=== PATIENT | female | born 1970 | race Caucasian/White ===

== ENCOUNTER 2021-10-05 15:18 | Emergency (ER) | payer OTHER, SELFPAY ==
--- NOTE | 2021-10-05 15:22 | ED.BACK ---
HPI - Back Pain/Injury General Chief Complaint: Urogenital-Female Stated Complaint: Right Low Flank Pain Time Seen by Provider: 10/05/21 15:21 Source: patient Mode of arrival: ambulatory Limitations: no limitations History of Present Illness HPI Narrative: Ms. Matias is a 51-year-old female patient presenting to the clinic today with complaints of right lower flank pain x2 weeks. She reports that the pain is off-and-on and radiates into her groin at times. She reports her worst pain is been about a 7 out of 10. Reports the pain is sharp and shooting. She has also notices urinary frequency however this is not unusual for her. She denies any blood in her urine. She denies any fever or chills. She denies any known injury to her back. Related Data Home Medications Medication Instructions Recorded Confirmed rosuvastatin 40 mg tablet 40 mg PO DAILY 10/05/21 10/05/21 Allergies Allergy/AdvReac Type Severity Reaction Status Date / Time No Known Allergies Allergy Verified 10/05/21 15:48 Review of Systems Review of Systems: Pertinent positives per HPI. Patient denies any fever, chills, rash, headache, visual changes, dizziness, cough, runny nose, sore throat, shortness of breath, chest pain, palpitations, nausea, vomiting, diarrhea, constipation, abdominal pain. PMFSH Comments At the time of my signature, I reviewed and agree with the nursing past medical, surgical, social, and family history. There is no relevant family history pertinent to the patient complaint. Exam Narrative: General: Well-developed, well nourished, in no apparent distress. Head: Normocephalic, atraumatic. Cardio: Regular rate and rhythm, s1 and s2 normal, no murmur appreciated. Resp: Clear to auscultation bilaterally, no rhonchi, rales, wheezing or rubs. Abdomen: Soft, pliable, bowel sounds present in all quadrants, non-tender to palpation, no organomegly, no CVAT tenderness. Course Course Emergency Course: Portions of this record may have been created with voice recognition software. Level of Care: Express Care Visit Vital Signs Vital signs: Vital Signs Temperature 36.9 C 10/05/21 15:30 Pulse Rate 88 10/05/21 15:30 Respiratory Rate 20 10/05/21 15:30 Blood Pressure 167/83 H 10/05/21 15:30 Pulse Oximetry 99 10/05/21 15:30 Oxygen Delivery Room Air 10/05/21 15:30 Temperature 36.9 C 10/05/21 15:30 Pulse Rate 88 10/05/21 15:30 Respiratory Rate 20 10/05/21 15:30 Blood Pressure 167/83 H 10/05/21 15:30 Pulse Oximetry 99 10/05/21 15:30 Oxygen Delivery Room Air 10/05/21 15:30 Vital signs reviewed MDM - Back Pain/Injury MDM Narrative Medical decision making narrative: At the time of visit patient is resting comfortably on exam table. UA was negative for any sign of infection but does have a trace of blood. I suspect that the patient may have a ureteral stone. Supportive measures were discussed with the patient and I explained that I could do a KUB in the office today however she declined and she would like to follow-up with her PCP. Prescriptions for ketorolac and Flomax was given to the patient. She voiced understanding of discharge instructions and agreed with the treatment plan. Differential Diagnosis Differential diagnosis: Likely sciatica, strain of lumbar region, renal colic and pyelonephritis Lab Data Labs: Urine Glucose Negative Reference Range: Negative Urine Bilirubin Negative Reference Range: Negative Urine Ketone Negative Reference Range: Negative Urine Specific [place] 1.010 Reference Range:1.001-1.035 Urine Blood Trace Reference Rang
[2021-10-05 15:30] VITALS: BP 167/83; PULSE 88; RESP 20; TEMP 36.9; O2SAT 99
== END 2021-10-05 16:05 | disposition home or self-care (01) ==
PROVIDERS: Emergency Provider Nurse Practitioner Family; PCP Family Medicine
DX: R10.9 Unspecified abdominal pain (principal); E78.00 Pure hypercholesterolemia, unspecified
CPT/HCPCS: 81003; 99203; G0463

== ENCOUNTER 2022-04-13 10:30 | Outpatient (CLI) | payer OTHER, SELFPAY ==
--- NOTE | ~2022-04-13 | US_ITS ---
EXAMINATION: US retroperitoneal comp DATE: 04/13/2022 10:59 INDICATION: Right flank pain TECHNIQUE: Multiple ultrasound grayscale images of the kidneys were obtained. COMPARISON: None. FINDINGS: The right kidney measures 10.1 x 4.4 x 5.0 cm. The left kidney measures 11.1 x 5.4 x 6.5 cm. The kidn eys demonstrate normal echogenicity. There is no hydronephrosis in either kidney. No stones identifi ed. The bladder is normal with bilateral ureteral jets visible on color Doppler. IMPRESSION: 1. Normal kidneys without hydronephrosis. Reviewed, dictated and finalized at location A. ENTRY EMAIL PROCESSOR
== END 2022-04-13 10:31 | disposition home or self-care (01) ==
PROVIDERS: PCP Family Medicine; Visit Provider Family Medicine
DX: R10.9 Unspecified abdominal pain (principal)
CPT/HCPCS: 76770

== ENCOUNTER 2022-04-16 09:45 | Outpatient (CLI) | payer OTHER, SELFPAY ==
--- NOTE | ~2022-04-16 | US_ITS ---
EXAMINATION: US retroperitoneal duplex ltd DATE: 04/16/2022 10:44 CAN SORTER INDICATION: Uncontrolled hypertension. TECHNIQUE: Sonographic imaging of the kidneys was performed with a 3.5 MHz transducer. Retroperitone al duplex sonogram of the renal arteries also obtained. FINDINGS: No focal flow abnormalities are seen in the renal arteries on color Doppler. The peak syst olic velocity ranges of the right and left renal arteries and aorta are 106 cm per second, 114 cm per second, and 149 cm per second, respectively. The velocities and renal to aortic ratios are within no rmal limits. IMPRESSION: 1. No Doppler evidence of renal artery stenosis. Reviewed, dictated and finalized at location B. SORTER
== END 2022-04-16 09:46 | disposition home or self-care (01) ==
PROVIDERS: PCP Family Medicine; Visit Provider Family Medicine
DX: I10 Essential (primary) hypertension (principal)
CPT/HCPCS: 93976